=== PATIENT | male | born 1990 | race Caucasian/White ===

== ENCOUNTER 2016-06-10 20:16 | Emergency (ER) | payer OTHER ==
[~2016-06-10] VITALS: Ht 182.9 cm; Wt 148.3 kg
--- NOTE | 2016-06-10 23:30 | ACF ---
Admission Forms Criteria HYPERTENSION Clinical Indications for Admission to Inpatient Care ( Place "X" for any and all applicable criteria): Admission is indicated for ANY ONE of the following(1)(2)(3)(4): [ ]I. Hypertensive emergency, with evidence of acute and progressing target organ disease as indicated by ANY ONE of the following: [ ]a) Hypertensive encephalopathy (eg, confusion, altered mental status) [ ]b) Cerebral infarction [ ]c) Intracranial hemorrhage [ ]d) Myocardial ischemia or infarction [ ]e) Pulmonary edema [ ]f) Aortic dissection [ ]g) Seizure [ ]h) Acute renal insufficiency [ ]i) Papilledema [ ]j) Microangiopathic hemolytic anemia [ ]II. Adrenergic crisis (eg, severe hypertension due to pheochromocytoma crisis, cocaine or amphetamine intoxication, or clonidine withdrawal) [ ]III. Severe hypertension (SBP greater than 180 mmHg or DBP greater than 110 mmHg or greater than the 95th percentile for age, gender, and height in pediatric patients) that cannot be controlled (eg, to SBP less than 160 mmHg and DBP less than 100 mmHg in adults) by treatment with oral medication in emergency department or observation care Extended stay beyond goal length of stay may be needed for(11)(12)(13): [ ]a) Persistent hypertensive encephalopathy [ ]b) Continuation of pulmonary edema [ ]c) Recurring or persistent severe hypertension [ ]d) Target organ damage (eg, angina, stroke, aortic dissection) [ ]e) Associated renal insufficiency The original [facility] content created by [facility] has been revised. The portions of the content which have been revised are identified through the use of italic text or in bold, and [facility] has neither reviewed nor approved the modified material. All other unmodified content is copyright [facility]. Please see references footnoted in the original [facility] edition 2016 CRAIG CONTRERAS Jun 10, 2016 23:30
[2016-06-10 23:54] LABS: BASO # 0.1 x10^3/uL (0.0-0.2); BASO % 1 % (0-3); EOS % 2 % (0-3); LYMPH # 3.6 x10^3/uL (1.0-4.8); LYMPH % 34 % (24-48); MEAN CORPUSCULAR HEMOGLOBIN 28 pg (25-35); MEAN CORPUSCULAR HGB CONC 33 g/dL (31-37); MEAN CORPUSCULAR VOLUME 83 fL (79-100); MONO % 6 % (0-9); NEUT % 57 % (31-73); PLATELET COUNT 247 x10^3/uL (140-400); RED BLOOD COUNT 5.05 x10^6/uL (4.30-5.70); RED CELL DISTRIBUTION WIDTH 13.6 % (11.5-14.5); WHITE BLOOD COUNT 10.6 x10^3/uL (4.0-11.0)
[2016-06-11 00:13] LABS: CALCIUM 9.2 mg/dL (8.5-10.1); POTASSIUM 3.3 mmol/L (3.5-5.1)
[2016-06-11 00:19] LABS: ALBUMIN 3.8 g/dL (3.4-5.0); TOTAL BILIRUBIN 0.4 mg/dL (0.2-1.0); TOTAL PROTEIN 7.8 g/dL (6.4-8.2)
[2016-06-11] MEDS ORDERED: AMLO10TA4 PO (00:50)
--- NOTE | 2016-06-11 00:50 | PHYS DOC ---
Past Medical History Past Medical History: Other Additional Past Medical Histor: PTSD, NIGHT TERRORS, CARPAL TUNNEL Past Surgical History: Tonsillectomy, Other Additional Past Surgical Histo: VESECTOMY Alcohol Use: None Drug Use: None Adult General Chief Complaint Chief Complaint: HYPERTENSION HPI HPI Patient is a 26 year old gentleman who presents here today for evaluation with an elevated blood pressure. Patient reports that his others home health nurse checked his blood pressure the other day and it was elevated. Patient reports that since then he's been feeling weak and tired and not himself. Patient presents today for evaluation of his elevated blood pressure. Patient denies any history of diabetes CHF COPD asthma. Patient does have a history of PTSD. Patient doesn't smoke drink or do any drugs. Patient is not allergic to any medications. Patient has any fevers shakes chills nausea vomiting diarrhea chest pain shortness of breath lower STEMI edema or change in urinary changes. Patient's physical exam is unremarkable. Patient's heart is regular rate and rhythm. Lungs were clear abdomen was soft nontender no rebound or guarding. Patient had no papilledema. Patient's EKG revealed normal sinus rhythm at a heart rate of [address]-T wave abnormalities. No evidence of STEMI, no evidence of LVH or RVH. A/P #1 hypertension. This is the patient's second time getting his blood pressure check. Patient's blood pressure significantly elevated. Patient will likely need to be started on antihypertensive medications. We will start him on Norvasc 10 mg once a day and has been instructed to follow-up with primary care physicians in order to keep an eye on his blood pressure and readjust his antihypertensives as needed. Patient has no signs or symptoms that would be consistent with an acute emergency. Patient does not show any evidence of hypertensive emergency. Patient has no evidence of end organ damage. Review of Systems Review of Systems Constitutional: Denies fever or chills [] Eyes: Denies change in visual acuity, redness, or eye pain [] All other review systems are negative except as documented in the history of present illness portion Current Medications Current Medications Current Medications Medications (Trade) Dose Ordered Sig/[place] Start Time Stop Time Status Last Admin Dose Admin Amlodipine Besylate (Norvasc) 10 mg 1X ONCE 06/11/16 00:45 06/11/16 00:46 UNV Allergies Allergies Allergies Coded Allergies Type Severity Reaction Last Updated Verified tomato Allergy Unknown 6/20/15 No Physical Exam Physical Exam Constitutional: Well developed, well nourished, no acute distress, non-toxic appearance. [] HENT: Normocephalic, atraumatic, bilateral external ears normal, oropharynx moist, no oral exudates, nose normal. [] Eyes: PERRLA, EOMI, conjunctiva normal, no discharge. [] Neck: Normal range of motion, no tenderness, supple, no stridor. [] Cardiovascular:Heart rate regular rhythm, no murmur [] Lungs & Thorax: Bilateral breath sounds clear to auscultation [] Abdomen: Bowel sounds normal, soft, no tenderness, no masses, no pulsatile masses. [] Skin: Warm, dry, no erythema, no rash. [] Back: No tenderness, no CVA tenderness. [] Extremities: No tenderness, no cyanosis, no clubbing, ROM intact, no edema. [] Neurologic: Alert and oriented X 3, normal motor function, normal sensory function, no focal deficits noted. [] Psychologic: Affect normal, judgement normal, mood normal. [] Current Patient Data Vital Signs Vital Signs Date Time Temp Pulse Resp B/P Pulse Ox O2 Delivery O2 Flow Rate FiO2 06/10/16 21:53 98.1 97 18 180/111 99 Room Air 98.1 Lab Values Laboratory Tests Test 06/10/16 23:45 White Blood Count 10.6x10^3/uL (4.0-11.0) Red Blood Count 5.05x10^6/uL (4.30-5.70) Hemoglobin 14.0g/dL (13.0-17.5) Hematocrit 42.0% (39.0-53.0) Mean Corpuscular Volume 83fL (79-100) Mean Corpuscular Hemoglobin 28pg (25-35) Mean Corpuscular Hemoglobin Concent 33g/dL (31-37) Red Cell Distribution Width 13.6% (11.5-14.5) Platelet Count 247x10^3/uL (140-400) Neutrophils (%) (Auto) 57% (31-73) Lymphocytes (%) (Auto) 34% (24-48) Monocytes (%) (Auto) 6% (0-9) Eosinophils (%) (Auto) 2% (0-3) Basophils (%) (Auto) 1% (0-3) Neutrophils # (Auto) 6.0x10^3uL (1.8-7.7) Lymphocytes # (Auto) 3.6x10^3/uL (1.0-4.8) Monocytes # (Auto) 0.7x10^3/uL (0.0-1.1) Eosinophils # (Auto) 0.2x10^3/uL (0.0-0.7) Basophils # (Auto) 0.1x10^3/uL (0.0-0.2) Sodium Level 144mmol/L (136-145) Potassium Level 3.3mmol/L (3.5-5.1) L Chloride Level 104mmol/L (98-107) Carbon Dioxide Level 31mmol/L (21-32) Anion Gap 9 (6-14) Blood Urea Nitrogen 13mg/dL (8-26) Creatinine 1.0mg/dL (0.7-1.3) Estimated GFR (Cockcroft-Gault) 89.0 BUN/Creatinine Ratio 13 (6-20) Glucose Level 120mg/dL (70-99) H Calcium Level 9.2mg/dL (8.5-10.1) Total Bilirubin 0.4mg/dL (0.2-1.0) Aspartate Amino Transferase (AST) 53U/L (15-37) H Alanine Aminotransferase (ALT) 81U/L (16-63) H Alkaline Phosphatase 69U/L (46-116) Troponin I Quantitative < 0.017ng/mL (0.000-0.055) Total Protein 7.8g/dL (6.4-8.2) Albumin 3.8g/dL (3.4-5.0) Albumin/Globulin Ratio 1.0 (1.0-1.7) Laboratory Tests 06/10/16 23:45 Laboratory Tests 06/10/16 23:45 EKG EKG [] Radiology/Procedures Radiology/Procedures [] Course & Med Decision Making Course & Med Decision Making Pertinent Labs and Imaging studies reviewed. (See chart for details) [] Dragon Disclaimer Dragon Disclaimer This electronic medical record was generated, in whole or in part, using a voice recognition dictation system. Departure Departure Impression: Primary Impression: Hypertension Disposition: 01 HOME, SELF-CARE Condition: IMPROVED Referrals: NO PCP (PCP) Patient Instructions: Hypertension, Managing Your High Blood Pressure Additional Instructions: We have started you on Norvasc, this is a blood pressure medication. He will need to follow-up with a primary care physician so that they can readjust her medications and make sure that you're responding appropriately to her medications. Scripts Amlodipine Besylate (Norvasc)10 Mg [id number] Mg PO DAILY #14 TAB Prov:TYREE CANO MD 06/11/16 TYREE CANO MD Jun 11, 2016 00:50
[2016-06-11] MEDS ORDERED: AMLODIPINE BESYLATE 5 MG TABLET. PO ONE (01:00)
[2016-06-11 01:33] VITALS: BP 189/88
--- NOTE | 2016-06-11 06:18 | EKG ---
[facility] [address] [place] [address] Test Date: 2016-06-10 Test Time: 23:54:50 Pat Name: MAR LU Department: Room: Gender: M [employer]ator: : 1990 Requested By: TYREE CANO Order Number: [id number] Reading MD: Rafael Moulton Measurements Intervals [place] Rate: 85 P: 25 AL: 144 QRS: 22 QRSD: 90 T: 33 QT: 384 QTc: 463 Interpretive Statements SINUS RHYTHM NON-SPECIFIC ST/T CHANGES Electronically Signed On 06-11-2016 8:44:35 CDT by Rafael Moulton
== END 2016-06-11 01:42 | disposition home or self-care (01) ==
LOC: ER 20:16
DX: I10 Essential (primary) hypertension (principal); R53.1 Weakness; F43.10 Post-traumatic stress disorder, unspecified; Z91.018 Allergy to other foods
CPT/HCPCS: 36415; 80053; 84484; 85027; 93005; 99285-25